=== PATIENT | male | born 1995 | race Caucasian/White ===

== ENCOUNTER 2019-02-11 08:56 | Emergency (ER) | payer SELFPAY ==
[2019-02-11 08:58] VITALS: BP 127/77; PULSE 92; RESP 18; TEMP 36.3; O2SAT 98; BMI 29.7
[2019-02-11 09:32] LABS: Absolute Lymphocyte Count 2.15 X10^3/ul (0.83-4.51); Absolute Neutrophil Count 5.6 X10^3/uL (2.0-7.7); Basophil# 0.07 X10^3/uL; Basophil% 0.8 % (0-1); Eosinophil# 0.07 X10^3/uL; Eosinophils% 0.8 % (0-5); Hematocrit 45.5 % (40-54); Hemoglobin 16.1 g/dl (13.0-16.5); Lymphocyte # 2.15 X10^3/ul (4.0); Lymphocyte % 25.3 % (19-41); Mean Corp Hgb Conc 35.4 g/gl (32-36); Mean Corpuscular Hgb 31.4 pg (27.0-32.0); Mean Corpuscular Volume 88.7 fL (80-94); Mean Platelet Vol. 8.8 fl (6.2-12.0); Monocyte% 7.1 % (0-10); Neutrophil # 5.58 X10^3/uL (2.7-7.7); Neutrophil % 65.8 % (47-70); Platelet Count 250 K/mm3 (150-450); RBC Distribution Width CV 12.6 % (11.6-14.6); RBC Distribution Width SD 40.5 fl (35.1-43.9); Red Blood Count 5.13 M/mm3 (4.6-6.2); White Blood Count 8.5 K/mm3 (4.4-11.0)
[2019-02-11 09:33] LABS: POSITIVE COUNT NO; POSITIVE DIFFERENTIAL NO; POSITIVE MORPHOLOGY NO
[2019-02-11 09:48] LABS: ALB/GLOB Ratio 1.3 RATIO (0.9-2.4); AST(SGOT) 30 U/L (15-37); Alanine Aminotransfer ALT/SGPT 41 U/L (16-61); Albumin, Serum 4.4 g/dL (3.2-5.0); Alkaline Phosphatase 107 U/L (45-117); Anion Gap 6 (5-15); BUN 11 mg/dL (7-18); BUN/Creat Ratio 10.8 RATIO (10-20); Calcium,Total 8.8 mg/dL (8.5-10.1); Chloride 107 mmol/L (98-107); Creatinine, Serum 1.02 mg/dL (0.70-1.30); EST Glomerular Filtration Rate 96 mL/min (>60); Est Glom Filt Rate - Afr Amer 116 mL/min (>60); Estimated Creatinine Clearance 101.64 ml/min; Globulin 3.3 g/dL (2.2-4.2); Glucose 95 mg/dL (74-106); Potassium 3.8 mmol/L (3.5-5.1); Protein, Total 7.7 g/dL (6.4-8.2); Sodium Level 140 mmol/L (136-145)
[2019-02-11 09:51] LABS: Amphetamine Urine VISTA POSITIVE (<1000 ng/mL); Barbiturate Urine VISTA NEGATIVE (< 200 ng/mL); Benzodiazepine Urine VISTA NEGATIVE (< 200 ng/mL); Cocaine Urine VISTA NEGATIVE (< 300 ng/mL); Ecstacy Urine VISTA POSITIVE (< 500 ng/mL); Methadone Urine VISTA NEGATIVE (< 300 ng/mL); PCP Urine VISTA NEGATIVE (< 25 ng/mL); THC Urine VISTA POSITIVE (< 50 ng/mL); Vista UDS pH Range 5
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
--- NOTE | 2019-02-11 11:36 | ED.RN ---
[facility] WITH CRISIS IS HERE
[2019-02-11 12:01] VITALS: RESP 18
--- NOTE | 2019-02-11 12:09 | ED.RN ---
PER [facility] PT IS GOING TO BE REFERRED TO [facility]
--- NOTE | 2019-02-11 12:41 | ED.RN ---
PER [facility] WITH CRISIS; THIS PT IS GOING TO BE A LITTLE MORE COMPLICATED THAN MOST BECAUSE THEY CANT VERIFY ADDRESS DUE TO HIM BEING HOMELESS FOR THE PAST YEAR. 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
[2019-02-11 13:06] VITALS: RESP 16
--- NOTE | 2019-02-11 15:33 | ED.RN ---
[facility] WITH CRISIS CALLED; THEY ARE STILL WORKING ON PLACEMENT. WILL BE UP TO COPY THE PTS DRIVERS LICENSE
[2019-02-11 17:42] VITALS: BP 127/80; PULSE 89; RESP 16; TEMP 36.7; O2SAT 98
[2019-02-11 22:14] VITALS: BP 102/64; PULSE 63; RESP 14; TEMP 36.6; O2SAT 96
[2019-02-11 23:59] VITALS: RESP 17
[2019-02-12] VITALS (11 sets, daily range): BP systolic 94–127; BP diastolic 49–91; PULSE 63–100; RESP 16–20; O2SAT 98–100
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
--- NOTE | 2019-02-12 00:31 | ED.RN ---
PT REFUSING CT SCAN THAT [facility] REQUESTED. DR TOUSSAINT NOTIFIED. [facility] CONTACTED
[2019-02-12] MEDS: Ziprasidone IM 20 MG/ML VIAL IM (01:43)
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
[2019-02-12] MEDS: LORazepam 2 MG/ML Syringe IM (02:18)
--- NOTE | 2019-02-12 02:55 | ED.RN ---
PT TAKEN TO CT FOR SCAN. POST FRAMER AND THIS NURSE WENT WITH THE PT. 4POINT LOCKED RESTRAINTS REMOVED FOR CT. PT CALM AND COOPERATIVE. PT MOVED TO AND FROM THE CT TABLE ON HIS OWN. PT THANKED THE STAFF FOR HELPING HIM
--- NOTE | 2019-02-12 06:19 | ED.RN ---
[facility] CONTACTED FOR UPDATED. WAITING TO HEAR FROM DOCTOR.
--- NOTE | 2019-02-12 06:19 | ED.RN ---
PT LAYING IN BED SLEEPING. AWAKENS EASILY. PT CALM AND COOPERATIVE
--- NOTE | 2019-02-12 13:49 | ED.RN ---
REPORT TO [facility]. PT SKIN P/W/D, RESP EVEN AND UNLABORED, PT A&O X 3, NO DISTRESS NOTED. PT OUT OF ED WITH [facility] FOR TRANSPORT TO [facility]. ALL PT BELONGINGS WITH [facility] FOR TRANSPORT.
== END 2019-02-12 13:50 ==
PROVIDERS: Emergency Provider Emergency Medicine
DX: R45.851 Suicidal ideations (principal); F32.9 Major depressive disorder, single episode, unspecified; V89.2XXA Person injured in unspecified motor-vehicle accident, traffic, initial encounter; W22.09XA Striking against other stationary object, initial encounter; Y93.9 Activity, unspecified; Y92.9 Unspecified place or not applicable; F12.90 Cannabis use, unspecified, uncomplicated; F15.90 Other stimulant use, unspecified, uncomplicated; F10.99 Alcohol use, unspecified with unspecified alcohol-induced disorder; Z72.0 Tobacco use
CPT/HCPCS: 70450; 80053; 80307; 80320; 85025; 93005; 96372; 99285; J7030; G0480; J3486

== ENCOUNTER 2025-03-09 23:25 | Emergency (ER) | payer SELFPAY ==
[2025-03-09 23:26] VITALS: BP 144/96; PULSE 95; RESP 17; TEMP 36.6; O2SAT 99; BMI 35.2
--- OUTSIDE RECORDS SUMMARY | 2025-03-09 23:48 | XMS RPT_ITS | CCD ---
Author Organization [facility] Inform ion Partnership [facility] Care Team Providers Care Certified Medical Technician Name Role Phone Unavailable Primary Care Provider LAURE Palmer Referring Unavailable JAMIN TRACY Attending Fish Anderson Attending Unavailable Care Physician, No Primary Referring Unava ilable Care Physician, No Primary Primary Care Unava ilable Medications Current Medications Medication Drug Class(es) Dates Sig (Normalized) Sig (Original) betamethasone 0.5 mg/ml topical cream (1 source) Corticosteroid Start: 03-21-2023 betamethasone dipropionate (DIPROSONE) 0.05 % cream Apply to affected area twice daily. To affected area 45 g 1 03/21/2023 Active Start: 03-21-2023 betamethasone dipropionate (DIPROSONE) 0.05 % cream Apply to affected area twice daily. To affected area 45 g 1 03/21/2023 Active Comment on above: Apply to affected ar ea twice daily. To affected area Completed/Discontinued Medications Medication Drug Class(es) Dates Sig (Normalized) Sig (Original) citalopram 20 mg oral tablet (2 sources) Serotonin Reuptake Inhibitor Start: 03-24-2008 citalopram hydrobromide(FRANCISCO JAVIER XA 20 MG TAB) Take one(1) tablet daily. 0 0 03/24/2008 Active Comment on above: Take one(1) tablet d aily. QUEtiapine 50 mg oral tablet (2 sources) Atypical Antipsychotic Start: 03-24-2008 quetiapine fumarate(SEROQUEL 50 MG TAB) 3 tabs at hs and 1 tab in am 0 0 03/24/2008 Active Comment on above: 3 tabs at hs and 1 t ab in am Problems Problem Classification Problem Date Documented Da te Episodic/Chronic Other male genital disorders (2 sources) Phimosis; Translations: [Phimosis] 03-07-2023 Episodic Other male genital disorders (1 source) Phimosis; Translations: [Phimosis of penis] Onset: 03-21-2023 Episodic Results Test Name Value Interpretation Reference Range Facil ity Office Visit Reporton 2024 Office Visit Report [facility] [address] [place] [address] OFFICE VISIT Date of Service: 11/09/24 MR#: [id number] Acct: [id number] Patient: EUNICE BASILIO Rep #: [id number] : 1995 Provider: ADRIA Nieves Age/Sex: 29/M [place] [facility] Status: Signed with Addenda ADDENDUM by ASHELY Ruiz on 11/15/24 at 0926 Office Procedure Documentation entered by Jasmin Ruiz MA 11/15/24 09:26: Now [facility] Billing Sheet Testing Respirator Fit Testing: Yes Date cc: * Signed Intake Intake Visit Reasons: fit test/ action coupling Allergies No Known Allergies Allergy (Verified 02/11/19 09:00) Nurse's Note: Patient is here for a Fit test per his Employer. 11/09/24 1621 Date Fish [place] Cosigner Signature: Date (if applicable) CC: Normal [facility] CNOVon 03-21-2023 CNOV Office Visit (UROLMD ) PRINCESS BASILIO ([id number]) 1995 M Date Time Provider Department 03/21/23 8:45 AM JAMIN TRACY URONICOLAS During your visit today, we recorded the following information about you: Weight Height 105.7 kg 1.676 m Jamin Tracy MD 03/21/2023 9:05 AM Signed [facility] NEW PATIENT CLINIC NOTE UROL [facility] PATIENT: Princess Basilio (27 year old) PCP: No primary care provider on file. CHIEF COMPLAINT: Foreskin irritation HISTORY OF PRESENT ILLNESS: Princess Basilio is a 27 year old male with phimosis. Patient states that he can replace foreskin during intercourse several years ago and never healed properly. He has developed chronic irritation and inability to retract his foreskin. On occasion he has some burning when he urinates. Patient unable to provide any urine sample today. Went to [facility] care 1 weeks ago and was referred to urology.. LABS: No results found for: PSA, PSAPER No results found for: ISOPSA No results found for: CREAT OFFICE DATA: POST-VOID RESIDUAL BLADDER VOLUME: N/A cc URINE POC No results found for this basename: uglucpoc,ubilipoc,uket onpoc,usgpoc,uhbpoc,up hpoc,upropoc,uuropoc,u nitpoc,uwbcpo- c,ucolpoc,uclarpoc IMAGING: none REVIEW OF SYSTEMS: Reviewed and otherwise non-contributory. HISTORY: PAST MEDICAL HISTORY Diagnosis Date Attention deficit disorder without mention of hyperactivity PAST SURGICAL HISTORY Procedure Laterality Date NONE Social History Tobacco Use Smoking status: Every Day Types: Cigarettes Smokeless tobacco: Never Substance Use Topics Alcohol use: No Drug use: No FAMILY HISTORY Problem Relation Age of Onset Diabetes Maternal Grandfather MEDICATIONS: Current Outpatient Medications Medication Sig quetiapine fumarate(SEROQUEL 50 MG TAB) 3 tabs at hs and 1 tab in am (Patient not taking: Reported on 03/07/2023) citalopram hydrobromide(CELEXA 20 MG TAB) Take one(1) tablet daily. (Patient not taking: Reported on 03/07/2023) No current facility-administered medications for this visit. PHYSICAL EXAMINATION: VITALS: Ht 167.6 cm (5' 6) Wt 105.7 kg (233 lb) BMI 37.61 kg/m? GENERAL: alert, no distress, normal affect RESPIRATORY: normal effort ABDOMEN: soft, non-tender GENITOURINARY: Inguinal: No lesions, adenopathy, or hernias Phallus: uncircumcised, phimosis noted Meatus: orthotopic, patent, no discharge Scrotum: no lesions, normal rugae Testes: Descended, nontender, and no masses bilaterally L: nl R:nl Epididymides: L nl R nl Vas deferens: palpable bilaterally Varicocele: none EXTREMITIES: warm, no dependent edema, no malformations SKIN: no abnormal bruising, no rashes, no cyanosis NEUROLOGIC: normal gait, good manual dexterity, no paralysis ASSESSMENT/PLAN: 1. Phimosis of penis - ICD9: 605, ICD10: N47.1 -Begin trial of betamethasone 0.05% apply twice daily to foreskin over the next 4 weeks. Patient may call for follow-up if symptoms have not improved after 4 weeks. Consultation requested by Laure Da Silva APRN.INDEXER [address] [facility] [address] for an opinion regarding Princess Basilio patient and my final recommendations will be communicated back to the requesting physician by way of shared Medical record or letter via US mail. Jamin Tracy MD, MS Associate Staff [facility] Referring Provider: LAURE DA SILVA [[id number]] Allergies As of Date: 03/21/2023 (No Known Allergies) Date Reviewed: 03/21/2023 Reviewed by: Theodora Warner LPN - Fully Assessed Reason for Visit: Consult [173] phimosis [Other] Visit Diagnosis:Phimosis of penis [N47.1] Order(s):CONSULT TO UROLOGY [9041] Order #: [id number]: 1 betamethasone dipropionate (DIPROSONE) 0.05 % creamApply to affected area twice daily. To affected areaDisp: 45 gRfl: 1 Prescriptions as of 03/21/2023 - betamethasone dipropionate (DIPROSONE) 0.05 % cream Apply to affected area twice daily. To affected area - quetiapine fumarate(SEROQUEL 50 MG TAB) 3 tabs at hs and 1 tab in am - citalopram hydrobromide(CELEXA 20 MG TAB) Take one(1) tablet daily. Problem List As Of Date: 03/21/2023 (None) Prescriptions ordered this encounter Disp Refills Start End BETAMETHASONE DIPROPIONATE 0.05 % TO* 45 g 1 03/21/2023 Route: TOPICAL Sig: Apply to affected area twice daily. To affected area Disposition: Return if symptoms worsen or fail to improve. Follow-up and Disposition History for Encounter Date Provider Department Center [id number] Status:Closed by JAMIN TRACY on 03/21/23 [facility] CNOVon 03-07-2023 CNOV Office Visit (UCWSTR ) LUCIOMAURILIO CHEEMAERY ([id number]) 1995 M Date Time Provider Department 03/07/23 2:15 PM LAURE DA SILVA [facility] During your visit today, we recorded the following information about you: Temperature Pulse Respiration Blood pressure 97.8 degrees 62/minute 16/minute 122/78 Weight 107 kg Laure Da Silva APRN.INDEXER 03/07/2023 3:47 PM Signed Subjective HPI HPI Princess Basilio is a 27 year old male who presents today for CC of unable to retract foreskin. This started 3.5 years/getting worse, started after had an abrasion on penis from intercourse. Has tried nothing for relief. Symptoms are worsened by nothing. Is able to urinate, denies trouble. Denies testicular pain. .Patient presents with: genital discomfort: Ripped skin 3.5 years ago and healed smaller PAST MEDICAL HISTORY Diagnosis Date Attention deficit disorder without mention of hyperactivity PAST SURGICAL HISTORY Procedure Laterality Date NONE ALLERGIES Patient has no known allergies. MEDICATIONS quetiapine fumarate(SEROQUEL 50 MG TAB) 3 tabs at hs and 1 tab in am (Patient not taking: Reported on 03/07/2023) citalopram hydrobromide(CELEXA 20 MG TAB) Take one(1) tablet daily. (Patient not taking: Reported on 03/07/2023) FAMILY HISTORY Problem Relation Age of Onset Diabetes Maternal Grandfather Social History Tobacco Use Smoking status: Every Day Types: Cigarettes Smokeless tobacco: Never Substance Use Topics Alcohol use: No Drug use: No ROS Objective Blood pressure 122/78, pulse 62, temperature 36.6 ?C (97.8 ?F), temperature source Tympanic, resp. rate 16, weight 107 kg (235 lb 12.8 oz), SpO2 98 %. Physical Exam Constitutional: General: He is not in acute distress. Appearance: He is not toxic-appearing or diaphoretic. HENT: Head: Normocephalic and atraumatic. Pulmonary: Effort: Pulmonary effort is normal. No accessory muscle usage or respiratory distress. Genitourinary: Penis: Uncircumcised. Phimosis present. Neurological: Mental Status: He is alert and oriented to person, place, and time. ASSESSMENT/PLAN: 1. Phimosis of penis - ICD9: 605, ICD10: N47.1 Will refer to urology Urgent f/u if unable to urinate. - CONSULT TO UROLOGY Laure Da Silva APRN.CNP Allergies As of Date: 03/07/2023 (No Known Allergies) Date Reviewed: 03/07/2023 Reviewed by: Laure Da Silva APRN.FAB - Fully Assessed Reason for Visit: genital discomfort [Other] Cmt: Ripped skin 3.5 years ago and healed smaller Primary Visit Diagnosis:Phimosis of penis [N47.1] Order(s):CONSULT TO UROLOGY [9041] Order #: [id number]: 1 FUTURE Prescriptions as of 03/07/2023 - quetiapine fumarate(SEROQUEL 50 MG TAB) 3 tabs at hs and 1 tab in am - citalopram hydrobromide(CELEXA 20 MG TAB) Take one(1) tablet daily. Problem List As Of Date: 03/07/2023 (None) Encounter Status:Closed by LAURE DA SILVA on 03/07/23 Normal [facility] Vital Signs Date Time Vital Sign Value Performing Clinician Dre blue 03-21-2023 08:43-0400 Body height 167.6 cm Jamin Tracy MD Work Phone: [facility] 03-21-2023 08:43-0400 Body weight 105.69 kg Jamin Tracy MD Work Phone: [facility] 03-07-2023 14:12-0400 Body temperature 97.81 [degF] Laure Da Silva CYBER INCIDENT ANALYST.C INVENTORY AUDITOR Work Phone: [facility] 03-07-2023 14:12-0400 Body weight 106.96 kg Laure Da Silva CYBER INCIDENT ANALYST.C INVENTORY AUDITOR Work Phone: [facility] 03-07-2023 14:12-0400 Diastolic blood pressure 78 mm[Hg] Laure Da Silva CYBER INCIDENT ANALYST.INDEXER Work Phone: [facility] 03-07-2023 14:12-0400 Heart rate 62 /min Laure Da Silva CYBER INCIDENT ANALYST.C INVENTORY AUDITOR Work Phone: [facility] 03-07-2023 14:12-0400 Respiratory rate 16 /min Laure Da Silva CYBER INCIDENT ANALYST.C INVENTORY AUDITOR Work Phone: [facility] 03-07-2023 14:12-0400 SaO2% (BldA) [Mass fraction] 98 % Laure Da Silva CYBER INCIDENT ANALYST.INDEXER Work Phone: [facility] 03-07-2023 14:12-0400 Systolic blood pressure 122 mm[Hg] Laure Da Silva CYBER INCIDENT ANALYST.INDEXER Work Phone: [facility] Encounters Encounter Date Encounter Type Care Provider Facility Start: 11-09-2024 End: 11-09-2024 ambulatory Fish [place] Facility[facility] Start: 03-21-2023 End: 03-21-2023 ambulatory LAURE DA SILVA Facility:[facility] Start: 03-21-2023 End: 03-21-2023 Patient encounter procedure Jamin Tracy MD Work Phone: Urology Comment on above: Phimosis of penis Start: 03-07-2023 End: 03-07-2023 ambulatory LAURE DA SILVA Facility:[facility] Start: 03-07-2023 End: 03-07-2023 Patient encounter procedure Laure Da Silva CYBER INCIDENT ANALYST.INDEXER Work Phone: [facility] Comment on above: Phimosis of penis (P rimary Dx) Start: 03-18-2018 Patient encounter Facil [id number] Plan of Treatment Date Care Activity Detail Author Start: 04-04-2023 Influenza vaccination INFLUENZA (#1) [facility] Start: 08-04-2022 DEPRESSION ASSESSMENT DEPRESSION ASS ESSMENT [facility] Start: 2014 Urine microalbumin profile DTAP,TDAP,TD (1 - Tdap) [facility] Start: 2013 HEPATITIS C SCREENING HEPATITIS C SC REENING [facility] Start: 2013 HIV SCREENING HIV SCREENING [facility] Start: 2001 PNEUMOCOCCAL (1 - PCV) PNEUMOCOCCAL (1 - PCV) [facility] Start: 1995 COVID-19 VACCINE (#1) COVID-19 VACCI NE (#1) [facility] Start: 1995 HEPATITIS B (1 of 3 - 3-dose series) HEPATITIS B (1 of 3 - 3-dose series) [facility] Payers Date Payer Category Payer Self-pay 2022 Unknown [employer]ONAH BLUE CARD PPO OOS [id number] 2022-Present [phone] [address] [place] [address] PPO [id number] 2022 Unknown [id number] Self-pay [id number] Unknown [id number] Social History Date Type Detail Facility Start: [facility] History of tobacco use [facility] Start: 03-07-2023 Tobacco use and exposure Smoke less tobacco non-user [facility] Start: 03-07-2023 End: 03-21-2023 Alcohol intake Current non-drinker of alcohol (finding) [facility] Start: 03-07-2023 End: 03-21-2023 History of Social function [facility] Start: 03-07-2023 End: 03-21-2023 Tobacco use panel [facility] Start: 1995 Sex Assigned At Not on file C [facility] National Score (1-10 0), lower number is lower risk 91 [facility] Progress note 03-21-2023 Note Date & Type Note Facility 03-21-2023 Note HNO ID: [id number] Author: Jamin Tracy MD Service: ? Author Type: Physician Type: Progress Notes Filed: 03/21/2023 9:05 AM Note Text: [facility] [place] UROLOGY NEW PATIENT CLINIC NOTE UROL [facility] PATIENT: Princess Basilio (27 year old) PCP: No primary care provider on file. CHIEF COMPLAINT: Foreskin irritation HISTORY OF PRESENT ILLNESS: Princess Basilio is a 27 year old male with phimosis. Patient states that he can replace foreskin during intercourse several years ago and never healed properly. He has developed chronic irritation and inability to retract his foreskin. On occasion he has some burning when he urinates. Patient unable to provide any urine sample today. Went to [facility] care 1 weeks ago and was referred to urology.. LABS: No results found for: PSA, PSAPER No results found for: ISOPSA No results found for: CREAT OFFICE DATA: POST-VOID RESIDUAL BLADDER VOLUME: N/A cc URINE POC No results found for this basename: uglucpoc,ubilipoc,uketonpoc,usgpoc,uhbpoc ,uphpoc,upropoc,uuropoc,unitpoc,uw bcpoc,ucolpoc,uclarpoc IMAGING: none REVIEW OF SYSTEMS: Reviewed and otherwise non-contributory. HISTORY: PAST MEDICAL HISTORY Diagnosis Date Attention deficit disorder without mention of hyperactivity PAST SURGICAL HISTORY Procedure Laterality Date NONE Social History Tobacco Use Smoking status: Every Day Types: Cigarettes Smokeless tobacco: Never Substance Use Topics Alcohol use: No Drug use: No FAMILY HISTORY Problem Relation Age of Onset Diabetes Maternal Grandfather MEDICATIONS: Current Outpatient Medications Medication Sig quetiapine fumarate(SEROQUEL 50 MG TAB) 3 tabs at hs and 1 tab in am (Patient not taking: Reported on 03/07/2023) citalopram hydrobromide(CELEXA 20 MG TAB) Take one(1) tablet daily. (Patient not taking: Reported on 03/07/2023) No current facility-administered medications for this visit. PHYSICAL EXAMINATION: VITALS: Ht 167.6 cm (5' 6) Wt 105.7 kg (233 lb) BMI 37.61 kg/m? GENERAL: alert, no distress, normal affect RESPIRATORY: normal effort ABDOMEN: soft, non-tender GENITOURINARY: Inguinal: No lesions, adenopathy, or hernias Phallus: uncircumcised, phimosis noted Meatus: orthotopic, patent, no discharge Scrotum: no lesions, normal rugae Testes: Descended, nontender, and no masses bilaterally L: nl R:nl Epididymides: L nl R nl Vas deferens: palpable bilaterally Varicocele: none EXTREMITIES: warm, no dependent edema, no malformations SKIN: no abnormal bruising, no rashes, no cyanosis NEUROLOGIC: normal gait, good manual dexterity, no paralysis ASSESSMENT/PLAN: 1. Phimosis of penis - ICD9: 605, ICD10: N47.1 -Begin trial of betamethasone 0.05% apply twice daily to foreskin over the next 4 weeks. Patient may call for follow-up if symptoms have not improved after 4 weeks. Consultation requested by Laure Da Silva APRN.INDEXER [address] [facility] [address] for an opinion regarding Princess Basilio patient and my final recommendations will be communicated back to the requesting physician by way of shared Medical record or letter via US mail. Jamin Tracy MD, MS Associate Staff [facility] History of Present illness Narrative 03-21-2023 Jamin Tracy MD - 03/21/2023 8:52 AM EDT Note Date & Type Note Facility 03-21-2023 History of Presen t illness Narrative Images from the original note were not included. [facility] UROLOGY NEW PATIENT CLINIC NOTE UROL [facility] PATIENT: Princess Basilio (27 year old) PCP: No primary care provider on file. CHIEF COMPLAINT: Foreskin irritation HISTORY OF PRESENT ILLNESS: Princess Basilio is a 27 year old male with phimosis. Patient states that he can replace foreskin during intercourse several years ago and never healed properly. He has developed chronic irritation and inability to retract his foreskin. On occasion he has some burning when he urinates. Patient unable to provide any urine sample today. Went to [facility] 1 weeks ago and was referred to urology.. LABS: No results found for: PSA, PSAPER No results found for: ISOPSA No results found for: CREAT OFFICE DATA: POST-VOID RESIDUAL BLADDER VOLUME: N/A cc URINE POC No results found for this basename: uglucpoc,ubilipoc,uketonpoc,usgpoc,uh bpoc,uphpoc,upropoc,uuropoc,unitpoc,u wbcpoc,ucolpoc,uclarpoc IMAGING: none REVIEW OF SYSTEMS: Reviewed and otherwise non-contributory. HISTORY: PAST MEDICAL HISTORY Diagnosis Date Attention deficit disorder without mention of hyperactivity PAST SURGICAL HISTORY Procedure Laterality Date NONE Social History Tobacco Use Smoking status: Every Day Types: Cigarettes Smokeless tobacco: Never Substance Use Topics Alcohol use: No Drug use: No FAMILY HISTORY Problem Relation Age of Onset Diabetes Maternal Grandfather MEDICATIONS: Current Outpatient Medications Medication Sig quetiapine fumarate(SEROQUEL 50 MG TAB) 3 tabs at hs and 1 tab in am (Patient not taking: Reported on 03/07/2023) citalopram hydrobromide(CELEXA 20 MG TAB) Take one(1) tablet daily. (Patient not taking: Reported on 03/07/2023) No current facility-administered medications for this visit. PHYSICAL EXAMINATION: VITALS: Ht 167.6 cm (5' 6) Wt 105.7 kg (233 lb) BMI 37.61 kg/m GENERAL: alert, no distress, normal affect RESPIRATORY: normal effort ABDOMEN: soft, non-tender GENITOURINARY: Inguinal: No lesions, adenopathy, or hernias Phallus: uncircumcised, phimosis noted Meatus: orthotopic, patent, no discharge Scrotum: no lesions, normal rugae Testes: Descended, nontender, and no masses bilaterally L: nl R:nl Epididymides: L nl R nl Vas deferens: palpable bilaterally Varicocele: none EXTREMITIES: warm, no dependent edema, no malformations SKIN: no abnormal bruising, no rashes, no cyanosis NEUROLOGIC: normal gait, good manual dexterity, no paralysis ASSESSMENT/PLAN: 1. Phimosis of penis - ICD9: 605, ICD10: N47.1 -Begin trial of betamethasone 0.05% apply twice daily to foreskin over the next 4 weeks. Patient may call for follow-up if symptoms have not improved after 4 weeks. Consultation requested by Laure Da Silva APRN.INDEXER [address] [facility] [id number] for an opinion regarding Princess Basilio patient and my final recommendations will be communicated back to the requesting physician by way of shared Medical record or letter via US mail. Jamin Tracy MD, MS Associate Staff [facility] documented in this encounter [facility] Progress note 03-07-2023 Note Date & Type Note Facility 03-07-2023 Note HNO ID: [id number] Author: Laure Da Silva APRN.INDEXER Service: ? Author Type: Nurse Practitioner Type: Progress Notes Filed: 03/07/2023 3:47 PM Note Text: Subjective HPI HPI Princess Basilio is a 27 year old male who presents today for CC of unable to retract foreskin. This started 3.5 years/getting worse, started after had an abrasion on penis from intercourse. Has tried nothing for relief. Symptoms are worsened by nothing. Is able to urinate, denies trouble. Denies testicular pain. .Patient presents with: genital discomfort: Ripped skin 3.5 years ago and healed smaller PAST MEDICAL HISTORY Diagnosis Date Attention deficit disorder without mention of hyperactivity PAST SURGICAL HISTORY Procedure Laterality Date NONE ALLERGIES Patient has no known allergies. MEDICATIONS quetiapine fumarate(SEROQUEL 50 MG TAB) 3 tabs at hs and 1 tab in am (Patient not taking: Reported on 03/07/2023) citalopram hydrobromide(CELEXA 20 MG TAB) Take one(1) tablet daily. (Patient not taking: Reported on 03/07/2023) FAMILY HISTORY Problem Relation Age of Onset Diabetes Maternal Grandfather Social History Tobacco Use Smoking status: Every Day Types: Cigarettes Smokeless tobacco: Never Substance Use Topics Alcohol use: No Drug use: No ROS Objective Blood pressure 122/78, pulse 62, temperature 36.6 ?C (97.8 ?F), temperature source Tympanic, resp. rate 16, weight 107 kg (235 lb 12.8 oz), SpO2 98 %. Physical Exam Constitutional: General: He is not in acute distress. Appearance: He is not toxic-appearing or diaphoretic. HENT: Head: Normocephalic and atraumatic. Pulmonary: Effort: Pulmonary effort is normal. No accessory muscle usage or respiratory distress. Genitourinary: Penis: Uncircumcised. Phimosis present. Neurological: Mental Status: He is alert and oriented to person, place, and time. ASSESSMENT/PLAN: 1. Phimosis of penis - ICD9: 605, ICD10: N47.1 Will refer to urology Urgent f/u if unable to urinate. - CONSULT TO UROLOGY Laure Da Silva APRN.INDEXER [facility] History of Present illness Narrative 03-07-2023 Laure Da Silva APRN.FAB - 03/07/2023 3:25 PM EDT Note Date & Type Note Facility 03-07-2023 History of Presen t illness Narrative Subjective HPI HPI Princess Basilio is a 27 year old male who presents today for CC of unable to retract foreskin. This started 3.5 years/getting worse, started after had an abrasion on penis from intercourse. Has tried nothing for relief. Symptoms are worsened by nothing. Is able to urinate, denies trouble. Denies testicular pain. .Patient presents with: genital discomfort: Ripped skin 3.5 years ago and healed smaller PAST MEDICAL HISTORY Diagnosis Date Attention deficit disorder without mention of hyperactivity PAST SURGICAL HISTORY Procedure Laterality Date NONE ALLERGIES Patient has no known allergies. MEDICATIONS quetiapine fumarate(SEROQUEL 50 MG TAB) 3 tabs at hs and 1 tab in am (Patient not taking: Reported on 03/07/2023) citalopram hydrobromide(CELEXA 20 MG TAB) Take one(1) tablet daily. (Patient not taking: Reported on 03/07/2023) FAMILY HISTORY Problem Relation Age of Onset Diabetes Maternal Grandfather Social History Tobacco Use Smoking status: Every Day Types: Cigarettes Smokeless tobacco: Never Substance Use Topics Alcohol use: No Drug use: No ROS Objective Blood pressure 122/78, pulse 62, temperature 36.6 C (97.8 F), temperature source Tympanic, resp. rate 16, weight 107 kg (235 lb 12.8 oz), SpO2 98 %. Physical Exam Constitutional: General: He is not in acute distress. Appearance: He is not toxic-appearing or diaphoretic. HENT: Head: Normocephalic and atraumatic. Pulmonary: Effort: Pulmonary effort is normal. No accessory muscle usage or respiratory distress. Genitourinary: Penis: Uncircumcised. Phimosis present. Neurological: Mental Status: He is alert and oriented to person, place, and time. ASSESSMENT/PLAN: 1. Phimosis of penis - ICD9: 605, ICD10: N47.1 Will refer to urology Urgent f/u if unable to urinate. - CONSULT TO UROLOGY Laure Da Silva APRN.CNP documented in this encounter [facility] Evaluation note Note Date & Type Note Facility Evaluation note Diagnosis Phimosis of penis- Primary documented in this encounter [facility] Evaluation note Note Date & Type Note Facility Evaluation note Diagnosis Phimosis of penis documented in this encounter [facility] Summary Purpose Family History No Family History Records FoundNo Family History Records FoundNo Family History Records Found Advance Directives No Advanced Directives Records FoundNo Advanced Directives Records FoundNo Advanced Directives Records Found Reason for Referral Specialty Diagnoses / Procedures Referred By Jay Jay daniels Referred To Contact Urology Diagnoses Phimosis of penis Procedures CONSULT TO UROLOGY OFFICE/[facility]IENT [facility] 60-74 MINUTES Laure Da Silva APRN.INDEXER [address] [place] [address] Referral ID Status Reason Start Date Expiration Date Visits Requested Visits Authorized [id number] Authorized PCP Requested Referral 03/07/2023 03/06/2024 1 1 Additional Source Comments (unrecognized sect ion and content) No Status Records FoundNo Status Records FoundNo Status Records Found INFORMATION SOURCE (unrecogn ized section and content) DATE CREATED AUTHOR 05/17/2018 [facility] DATE CREATED AUTHOR AUTHOR'S ORGANIZ ATION 03/22/2023 [facility] DATE CREATED AUTHOR AUTHOR'S ORGANIZ ATION 11/15/2024 [facility] Source Comments (unrecognize d section and content) In the event this informatio n is protected by the Federal Confidentiality of Alcohol and Drug Abuse Patient Records regulations: The Federal rules restrict any use of the information to criminally investigate or prosecute any alcohol or drug abuse patient.[facility] the event this information is protected by the Federal Confidentiality of Alcohol and Drug Abuse Patient Records regulations: The Federal rules restrict any use of the information to criminally investigate or prosecute any alcohol or drug abuse patient.[facility] Reason for Visit (unrecogniz ed section and content) Reason Comments genital discomfort Ripped skin 3.5 yea rs ago and healed smaller Reason Comments Consult phimosis Specialty Diagnoses / Procedures Referred By Jay Jay daniels Referred To Contact Urology Diagnoses Phimosis of penis Procedures CONSULT TO UROLOGY OFFICE/[facility]IENT [facility] 60-74 MINUTES Laure Da Silva APRN.INDEXER [address] [place] [address] Referral ID Status Reason Start Date Expiration Date V isits Requested Visits Authorized [id number] Closed PCP Requested Referral 03/07/2023 03/06/2024 1 1 FOR RECORDS PERTAINING TO PATIENTS WHO ARE OR HAVE BEEN ENROLLED IN A CHEMICAL DEPENDENCY/SUBSTANCEABUSE PROGRAM, SOME INFORMATION MAY BE OMITTED. This clinical summary was aggregated from multiple sources. Caution should be exercised in using it in the provision of clinical care. This summary normalizes information from multiple sources, and as a consequence, information in this document may materially change the coding, format and clinical context of patient data. In addition, data may be omitted in some cases. CLINICAL DECISIONS SHOULD BE BASED ON THE PRIMARY CLINICAL RECORDS. [facility] [employer] [facility]. provides no warranty or guarantee of the accuracy or completeness of information in this document.
[2025-03-09] MEDS: Lorazepam 2 MG/ML WCH Syringe 1 MG IV (23:58)
[2025-03-10 00:25] VITALS: BP 127/73; PULSE 72; RESP 20; O2SAT 100
--- NOTE | 2025-03-10 00:41 | EX.ED.GUMALE ---
HPI History of Present Illness Chief Complaint: Male Pain/Injury Narrative Narrative: 29-year-old male who denies significant past medical history presents with penile problem that he states happened 10 minutes ago. He relates history that 5 or 6 years ago he ripped his foreskin, and it scarred down where he was unable to fully retract the foreskin. He states that tonight he was trying to remove the head of his penis in order to cleanse it. He now has pain and swelling at the base of the head of the penis and he is unable to retract and replace his foreskin fully. PFSH PFS Medical History Marijuana smoker Medical History no medical history Home Medications ?Medication ?Instructions ?Recorded ?Last Taken ?Type NK 02/11/19 Unknown History Allergy/AdvReac Type Severity Reaction Status Date / Time No Known Allergies Allergy Verified 03/09/25 23:25 Surgical History no surgical history Social History Smoking Status: Current every day smoker tobacco type: cigarettes ROS ROS ED ROS Narrative Review of systems positive for replaceable foreskin and penile pain. Denies other symptoms. EXAM Physical Exam Narrative Exam Narrative: Afebrile. Vital signs noted. Nontoxic-appearing. Cardiovascular examination reveals a regular rate and rhythm. Lungs are clear to auscultation bilaterally. The abdomen is soft and nontender with positive bowel sounds. Chaperoned examination of the genital area does reveal retracted foreskin. There is an edematous band at the base of the head of the penis. There is also noted scarring and thin stricture more proximal to the edematous band. Small area of ulceration also noted on the underside of the penis more towards the glans penis. Const Vital Signs: 03/09/25 23:26 03/10/25 00:25 03/10/25 01:00 Temperature 98 F Temperature Source Oral Pulse Rate 95 72 72 Respiratory Rate 17 20 H 18 Blood Pressure 144/96 H 127/73 H 122/71 H Blood Pressure Mean 112 91 88 Pulse Ox 99 100 100 Oxygen Delivery Method Room Air Room Air Room Air 03/10/25 02:00 03/10/25 02:00 Temperature 98.2 F Temperature Source Pulse Rate 75 75 Respiratory Rate 16 16 Blood Pressure 130/84 H 130/84 H Blood Pressure Mean 99 99 Pulse Ox 95 95 Oxygen Delivery Method Room Air MDM MDM MDM Narrative Medical decision making narrative: Differential diagnosis includes but not limited to paraphimosis versus phimosis versus both. Manual reduction attempt was made. Patient was also given Ativan 1 mg intravenously. Ice was applied as well. The head of the penis would retract into the remaining foreskin, and the edematous ring was reduced, but there is excess skin noted. Head of the penis is no longer purple. The phimotic ring does appear more like scar tissue. I discussed the patient with the transfer line at [facility]. The urologist Dr. Fernandez excepted him as an ED to ED transfer. I then discussed patient with Dr. Gatito Allen with emergency medicine who accepted him in transfer. He was given a dose of morphine for analgesia as well. Disposition is transferred. Patient is in stable condition. Of note, patient started to become belligerent and wanted to drive himself to the emergency department at a [facility] after he had been accepted. He had already received Ativan however so was not recommended. In speaking with him, he started to demand dorsal slit procedure be performed for his paraphimosis. I discussed risk-benefit with him, and he was told of the risk of infection, bleeding, no result or resolution, erectile dysfunction among other things, including the need for circumcision regardless then he declined. Hence, through shared decision making he was given morphine and additional Ativan and manual reduction was attempted again and there was livestock auctioneer present again. There was mild reduction in the edema again, but he was not tolerating reduction attempts again. He was transferred for urologic intervention. Disposition is transferred in stable condition. History & Record Review Discussion w/independent historian: Patient Management Discussion w/another healthcare provider: Mayonnaise Mixer (Urology at [facility]) Discharge Plan Triage Chief Complaint: Male Pain/Injury ED Provider: Glen Wills Dx/Rx/DC Orders Clinical Impression: Penile pain, Paraphimosis Prescriptions: No Action NK Primary Care Provider: Care Physician,No Primary Referrals: Care Physician,No Primary [Primary Care Provider] - Print Language: Upper Sorbian Disposition Disposition: Acute Care Hospital Discharge Location: [facility] Discharge Date/Time: 03/10/25 02:57
[2025-03-10 01:00] VITALS: BP 122/71; PULSE 72; RESP 18; O2SAT 100
[2025-03-10] MEDS: Lorazepam 2 MG/ML WCH Syringe 1 MG IV (01:43)
[2025-03-10 02:00] VITALS: BP 130/84; PULSE 75; RESP 16; TEMP 36.8; O2SAT 95
== END 2025-03-10 02:57 | disposition short-term general hospital (02) ==
PROVIDERS: Emergency Provider Emergency Medicine; Visit Provider Emergency Medicine
DX: N48.89 Other specified disorders of penis (principal); N47.2 Paraphimosis; F17.210 Nicotine dependence, cigarettes, uncomplicated
CPT/HCPCS: 99285; A4216